=== PATIENT | male | born 1965 | race Two or more races ===

== ENCOUNTER 2025-02-04 10:42 | Inpatient (IN) | payer OTHER ==
[2025-02-04 11:12] VITALS: BMI 25.3
[2025-02-04] MEDS ORDERED: ONDANSETRON *ODT* 4 MG TABLET SL PRN (12:43)
[2025-02-04] MEDS ORDERED: MAG HYDROX/AL HYDROX/SIMETH 30 ML UNIT-DOSE CUP PO PRN (12:43)
[2025-02-04] MEDS ORDERED: POLYETHYLENE GLYCOL (HEALTHYLAX) 3350 17 GM PACKET PO PRN (12:43)
[2025-02-04] MEDS ORDERED: NALOXONE (NARCAN) HCL 4 MG/0.1 ML SPRAY NS PRN (12:43)
[2025-02-04] MEDS ORDERED: hydrOXYzine PAMOATE 25 MG CAPSULE (FP) PO PRN (12:43)
[2025-02-04] MEDS ORDERED: MAGNESIUM HYDROX 2400MG/30ML ORAL SUSPENSION 30 ML CUP PO PRN (12:43)
[2025-02-04] MEDS ORDERED: IBUPROFEN 400 MG TABLET (FP) PO PRN (12:43)
[2025-02-04] MEDS ORDERED: BISMUTH SUBSALICYLATE 262 MG/15 ML BTL PO PRN (12:43)
[2025-02-04] MEDS ORDERED: ACETAMINOPHEN 325 MG TABLET (FP) PO PRN (12:43)
[2025-02-04] MEDS ORDERED: IBUPROFEN 600 MG TABLET (FP) PO PRN (12:43)
[2025-02-04] MEDS ORDERED: DICYCLOMINE HCL 10 MG CAPSULE PO PRN (12:43)
[2025-02-04] MEDS: LOPERAMIDE HCL 2 MG CAPSULE PO PRN (16:10)
[2025-02-04] MEDS ORDERED: AMOX TR/POT CLAV 875MG/125MG TABLETS (FP) PO SCH (22:00)
[2025-02-04] MEDS: MELATONIN 5 MG TABLETS PO SCH (22:24)
[2025-02-04] MEDS: ATORVASTATIN CA 40 MG TABLET (FP) PO SCH (22:25)
[2025-02-04] MEDS: THIAMINE 100 MG TABLET PO SCH (22:25)
[2025-02-04] MEDS: AMOX TR/POT CLAV 875MG/125MG TABLETS (FP) PO SCH (22:25)
[2025-02-05] MEDS: LORATADINE 10 MG TABLET PO SCH (09:32)
[2025-02-05] MEDS: PRENATAL VITAMINS W/ FOLIC ACID TABLET (FP) PO SCH (09:32)
[2025-02-05 11:43] LABS: HEMATOCRIT 43.8 % (40.1-51.0); HEMOGLOBIN 13.4 g/dL (13.7-17.5); MCHC 30.6 g/dl (32.3-36.5); MEAN CELL VOLUME 85.2 fl (79.0-92.2); MEAN PLT VOLUME 10.2 fl (9.4-12.4); PLATELET COUNT 226 x10^3/uL (163-337); RDW 15.9 % (12.2-16.1)
[2025-02-05 11:44] LABS: POTASSIUM 3.7 mmol/L (3.5-5.1)
[2025-02-05 12:01] LABS: ALBUMIN 4.3 g/dl (3.4-5.0); CALCIUM 9.3 mg/dL (8.5-10.1)
[2025-02-05 12:02] LABS: BILIRUBIN,TOTAL 0.5 mg/dL (0.2-1)
[2025-02-05 12:04] LABS: CREATININE 0.9 mg/dL (0.55-1.3)
[2025-02-05] MEDS: BENZOCAINE/MENTHOL (CHLORASEPTIC ) LOZENGE MM PRN (18:39)
[2025-02-05] MEDS: guaiFENesin 600 MG TABLET.ER (FP) PO PRN (18:40)
[2025-02-05 20:40] VITALS: RESP 18
[2025-02-05] MEDS: METHOCARBAMOL 500 MG TABLET PO PRN (22:25)
[2025-02-06 09:28] VITALS: BP 140/88; PULSE 88; TEMP 97.7
[2025-02-06] MEDS: BENZONATATE 200 MG CAPSULE PO PRN (10:27)
== END 2025-02-06 10:49 | disposition home or self-care (01) | DRG 775 ==
LOC: YASAS 10:42 → Y3N 13:11
PROVIDERS: ADMIT Allergy & Immunology; ATTEND Allergy & Immunology
PROC: HZ2ZZZZ Detoxification Services for Substance Abuse Treatment (ICD-10-PCS; principal; 2025-02-04)
DX: F10.20 Alcohol dependence, uncomplicated (principal); F41.9 Anxiety disorder, unspecified; F32.A Depression, unspecified; E78.5 Hyperlipidemia, unspecified; J32.9 Chronic sinusitis, unspecified; R73.03 Prediabetes; Z59.00 Homelessness unspecified
CPT/HCPCS: 36415; 80053; 80305; 80307; 85027; 86780; 93005; 93010